=== PATIENT | female | born 1970 | race Caucasian/White ===

== ENCOUNTER → 2024-07-02 16:38 | Outpatient (REF) | payer BC, SELFPAY | LOC: WDC 16:38 | PROVIDERS: ATTENDING PHYSICIAN Family Medicine | DX: Z12.31 Encounter for screening mammogram for malignant neoplasm of breast (principal) | CPT/HCPCS: 77063; 77067 ==

== ENCOUNTER → 2024-07-08 09:41 | Outpatient (REF) | payer BC, SELFPAY | LOC: MRI 3T 09:41 | PROVIDERS: ATTENDING PHYSICIAN Psychiatry & Neurology Neurology; FAMILY PHYSICIAN Family Medicine | DX: G93.0 Cerebral cysts (principal) | CPT/HCPCS: 70553; A9575 ==

== ENCOUNTER 2025-01-15 17:33 | Emergency (ER) | payer BC, SELFPAY ==
[2025-01-15 17:34] VITALS: BP 196/110
[2025-01-15 18:05] LABS: % Basophils 0.3 % (0-2); % Eosinophils 1.2 % (0-6); % Immature Granulocytes 0.3 % (0-0.5); % Lymphocytes 26.5 % (20.5-51.1); % Monocytes 8.4 % (1.7-9.3); % Neutrophils 63.3 % (42.2-75.2); Absolute Eosinophils 0.1 10^3/uL (0-0.7); Absolute Lymphocytes 2.6 10^3/uL (1.2-3.4); Absolute Monocytes 0.8 10^3/uL (0.1-0.6); Absolute Neutrophils 6.1 10^3/uL (1.4-6.5); Hematocrit 40.8 % (37.0-47.0); Hemoglobin 14.8 g/dL (12.0-16.0); Mean Corp Hgb Conc. 36.3 g/dL (33.0-37.0); Mean Corpuscular Hgb 30.8 pg (27.0-31.0); Mean Platelet Volume 11.3 fL (7.4-10.4); Nucleated Red Blood Cells % 0 %; Platelet Count 213 10^3/uL (130-400); White Blood Cell Count 9.7 10^3/uL (4.8-10.8)
[2025-01-15 18:26] LABS: Blood Urea Nitrogen 16 mg/dl (7-17); Calcium 9.9 mg/dl (8.4-10.2); Carbon Dioxide 26 mmol/L (22-30); Chloride 107 mmol/L (98-107); Glucose 106 mg/dl (70-99); Lipase 167 U/L (23-300); Sodium 142 mmol/L (135-145); eGFR > 60.00
[2025-01-15 18:28] VITALS: BMI 38.2
[2025-01-15 19:00] VITALS: BP 154/96
--- NOTE | 2025-01-15 19:07 | ED.GENMED ---
History of Present Illness
General
Chief Complaint: Abdominal Pain
Source: patient and records
Time Seen by Provider: 01/15/25 18:40
History of Present Illness
History of Present Illness:
Note:
CHIEF COMPLAINT(S)
Abdominal pain.
HISTORY OF PRESENT ILLNESS
The patient is a 54-year-old female presenting with abdominal pain. She reports the pain has been present for about a week. She describes the pain as intermittent and sharp, which was different from previous episodes she attributes to gas.
Initially, it was located more on the right lower abdomen but more recently shifted slightly to the left upper abdomen where the pain was more sharp, currently more generalized. The patient has a history of COVID-19 approximately one month ago and
took Paxlovid during this time, reports no URI-like symptoms over the last few weeks otherwise. She also reports recent lower back issues that resolved with physical therapy. The patient describes episodes of diarrhea two days ago, but her bowel
movements normalized the following day. She denies fever, but notes she experienced a general sense of malaise yesterday, which has since resolved.
SOCIAL HISTORY
The patient denies any cigarette, tobacco, alcohol, or substance use.
ALLERGIES
The patient denies any known drug allergies.
PAST SURGICAL HISTORY
Partial colectomy secondary to diverticulitis in 2019
REVIEW OF SYSTEMS
- Gastrointestinal: Abdominal pain, episodes of diarrhea followed by normal stools.
- Constitutional: General malaise noted but resolved.
- No reported fever.
Past History
Past History
ED Past Medical History: Hypothyroidism (graves ds) and Other (diverticulitis)
ED Past Surgical History: Bowel resection, and Tonsilectomy
Social History
Tobacco: Non-smoker
Alcohol: None
Drug: None
Personal:
Living: with family
Employment: Employed
Review of Systems
Review of Systems
All Other Systems: ROS reviewed and negative except as documented in HPI and ROS
Phy Exam
Physical Exam
Physical Exam:
GENERAL: Alert , in no apparent distress
EYE: clear conjunctiva b/l
HEAD: NCAT
ENT: o/p clr, mmm.
CARDIAC: Regular rate and rhythm .
LUNGS: Clear breath sounds bilaterally, no acute respiratory distress, no wheezes/rales/rhonchi
ABDOMEN: Soft, without focal tenderness, no r/g, no cvat, negative Harman sign, no tenderness at McBurney's point
NEUROLOGICAL: Alert and oriented
SKIN: Warm and dry, skin intact.
MUSCULOSKELETAL: No edema, well perfused.
PSYCH: Normal and appropriate interaction.
Scores
Heart Failure Risk
Heart Failure Risk Score: Not Applicable
Heart Score for Chest Pain Patients
STEMI patient?: Not applicable
Withdrawal Assessment of Alcohol
Withdrawal Assessment Completed?: Not applicable
Course
Orders/Labs/Results
Orders:
Orders
01/15/25 17:40
IV Insert/Care/Rem.- Treatment PRN
01/15/25 17:58
Basic Metabolic Panel Urgent
Complete Blood Count/With Diff Urgent
Lipase Urgent
01/15/25 19:07
CT Abd/pelvis W Iv Cont Urgent
Comment:
Reason For Exam: generalized abd pain, hx diverticulitis
01/15/25 19:18
Urinalysis Reflex To Culture Urgent
Date Specimen was Collected: 01/15/25
Time Specimen was Collected: 19:16
Urine Microscopic Reflex Cult Urgent
Urine Culture Urgent
TESSA Source: U
Specimen Description:
Date Specimen was Collected: 01/15/25
Time Specimen was Collected: 19:16
Abnormal Lab Results
01/15/25 01/15/25
17:58 19:18
MPV 11.3 H fL
(7.4-10.4)
Absolute Monos (auto) 0.8 H 10^3/uL
(0.1-0.6)
Glucose 106 H mg/dl
(70-99)
Ur Occult Blood Reflex 1+ A
(Negative)
Leukocyte Esterase Rfl 1+ A
(Negative)
01/15/25 17:58
01/15/25 17:58
Vital Signs
Initial and Last Documented VS:
Initial Vital Signs
Temp Pulse Resp BP Pulse Ox
98.8 F 92 16 196/110 98
01/15/25 17:34 01/15/25 17:34 01/15/25 17:34 01/15/25 17:34 01/15/25 17:34
Last Documented Vital Signs
Temp Pulse Resp BP Pulse Ox
97.8 F 85 20 159/83 98
01/15/25 18:28 01/15/25 20:03 01/15/25 20:03 01/15/25 20:02 01/15/25 20:03
MDM/Problems Addressed
Differential Diagnosis Includes:
The Differential Diagnosis includes, in no particular order and is not limited to:
- Appendicitis
- Gastroenteritis
- Diverticulitis
- Cholecystitis
- Irritable bowel syndrome
- Peptic ulcer disease
- Kidney stones
- Pelvic inflammatory disease
- Ovarian cyst
- Endometriosis exacerbation
MDM/Problems Addressed:
A CT scan of the abdomen has been planned and blood work has been drawn, awaiting results. The patient was advised to notify the medical team if her pain worsens during her stay for consideration of analgesic administration. She otherwise is
appearing quite well and in no acute distress. Vital signs reviewed and while she was hypertensive in triage this has improved at time of my exam
*Radiology
Radiology exam reviewed: radiology read reviewed
*Pulse Oximetry
SaO2: 98
Oxygen Mode of Delivery: Room air
*Critical Care Note
Total Time (30-74mins, 75-104mins- exclusive of procedures): Not Applicable
Data Reviewed
Review of Other/Old Records Reveals: Labs, Records and Discharge Summary
Patient Management
Escalation/DeEscalation of care consider admission/obs:
Patient CT scan returned showing significant constipation throughout the entirety of the bowel as well as mild proctitis. Other incidental findings discussed with the patient and printout of the CT scan was provided to the patient. Advised
increased fiber as well as water-soluble foods in her diet and patient can also take Colace/MiraLAX or other stool softener as needed.
ED Attending Note
-
Portions of this chart may have been created with voice recognition software.� Occasional wrong word or��sound alike� substitutions may have occurred due to the inherent limitations of voice recognition software.
Discharge Plan
Departure
Patient Disposition: Home (Routine Discharge)
Date of Disposition: 01/15/25
Time of Disposition: 20:28
Patient with high blood pressure during this ER visit?: Yes
Discharge Problem:
Abdominal pain, Constipation
Instructions: Constipation, Adult (DC)
Prescriptions:
No Action
multivitamin [One Daily Multivitamin] 1 EACH tablet
1 tab PO DAILY
cholecalciferol (vitamin D3) [Vitamin D3] 2,000 UNIT capsule
2,000 unit PO DAILY
metoprolol tartrate 12.5 MG tablet
12.5 mg PO BID
omeprazole [Prilosec] 40 mg Capsule,Delayed Release(Dr/Ec)
40 mg PO DAILY
dicyclomine [Bentyl] 10 mg Capsule
10 mg PO QID
Referrals:
Marianna Joel MD [Family Provider, Family Practice]
Interventions
Interventions:
*Risk Screen - Suicide Last Done: 01/15/25 17:34
*General Assessment Last Done: 01/15/25 18:30
*Neglect/Abuse Screening Last Done: 01/15/25 18:30
*ED- Fall Risk Assessment Last Done: 01/15/25 18:30
*ED COVID-19 Vaccine History Last Done: 01/15/25 18:30
*Nursing Disposition Last Done: 01/15/25 20:35
GQ-Ombhwk-Csdcxienex Assessment Last Done: 01/15/25 19:20
Discharge Date and Time
Discharge Date/Time: 01/15/25 20:40
Print Language: SYRIAC
[2025-01-15 19:44] LABS: Urine Albumin Negative (Neg - Trace); Urine Bilirubin Negative (Negative); Urine Character Clear (Clear); Urine Color Yellow; Urine Glucose Negative (Negative); Urine Ketone Negative (Negative); Urine Leukocyte 1+ (Negative); Urine Nitrite Negative (Negative); Urine Occult Blood 1+ (Negative); Urine Urobilinogen Negative (Neg - 1+)
[2025-01-15 20:00] LABS: Urine Squamous Cell >30 /LPF (Few)
[2025-01-15 20:02] VITALS: BP 159/83
[2025-01-15 20:02] LABS: Urine Red Blood Cell None Seen /HPF (0-2); Urine White Cell 0-2 /HPF (0-5)
== END 2025-01-15 20:40 | disposition home or self-care (01) ==
LOC: EMR 17:33
PROVIDERS: Physician Assistant Medical; Student in an Organized Health Care Education/Training Program; EMERGENCY PHYSICIAN Emergency Medicine; FAMILY PHYSICIAN Family Medicine
DX: K59.00 Constipation, unspecified (principal); R10.9 Unspecified abdominal pain; R03.0 Elevated blood-pressure reading, without diagnosis of hypertension
CPT/HCPCS: 99285; 74177; 80048; 81003; 81015; 83690; 85025; 87086; Q9967

== ENCOUNTER → 2025-03-26 13:16 | Outpatient (REF) | payer BC, SELFPAY | LOC: RAD 13:16 | PROVIDERS: ATTENDING PHYSICIAN Internal Medicine Endocrinology, Diabetes & Metabolism; FAMILY PHYSICIAN Family Medicine | DX: Z78.0 Asymptomatic menopausal state (principal) | CPT/HCPCS: 77080 ==

== ENCOUNTER → 2025-07-05 16:42 | Outpatient (REF) | payer BC, SELFPAY | LOC: WDC 16:42 | PROVIDERS: ATTENDING PHYSICIAN Obstetrics & Gynecology Gynecology; FAMILY PHYSICIAN Family Medicine | DX: Z12.31 Encounter for screening mammogram for malignant neoplasm of breast (principal) | CPT/HCPCS: 77063; 77067 ==